=== PATIENT | female | born 1995 | race American Indian/Alaskan Native ===

== ENCOUNTER 2020-02-28 20:11 | Emergency (ER) | payer OTHER ==
[2020-02-28 20:20] VITALS: BP 119/71
[2020-02-28] MEDS ORDERED: diphenhydrAMINE 50 MG/ML VIAL IM ONE (20:41)
--- NOTE | 2020-02-28 20:41 | Emergency Department Report ---
HPI - General Chief Complaint: Weakness Time Seen by Provider: 02/28/20 20:35 - HPI HPI: This is a 24-year-old female here reports that 10 minutes prior to coming to the emergency room she had episode of weakness and it started 30 minutes ago. Denies any fever chills. Denies any cough, runny nose or nasal congestion. Denies any chest pain or shortness of breath. Denies any exposure to coronavirus. Denies being around anyone that has been sick. Denies any abdominal or back pain. Denies any nausea vomiting or diarrhea. She is not concerned about because she said she is ferreira. Denies any fever chills and pain is 0 out of 10. She says she just feels nervous and shaky. Denies any drug use. She said she drinks alcohol socially and daily smoker. She has a history of mood disorder. ED Past Medical Hx - Past Medical History Previous Medical History?: Yes Hx Psychiatric Treatment: Yes (Mood disorder) - Surgical History Past Surgical History?: No - Family History Family history: no significant - Social History Smoking Status: Current Every Day Smoker Substance Use Type: Alcohol - Medications Home Medications: Home Medications Medication Instructions Recorded Confirmed Last Taken Type hydrOXYzine HCL [Atarax] 25 mg PO Q8H PRN #12 tablet 02/28/20 Unknown Rx ED Review of Systems ROS: Stated complaint: BODY SHAKING QUINCY Other details as noted in HPI Constitutional: weakness. denies: chills, fever Eyes: denies: eye pain, eye discharge ENT: denies: ear pain, throat pain, dental pain, congestion Respiratory: denies: cough, shortness of breath, SOB with exertion, SOB at rest, wheezing Cardiovascular: denies: chest pain, palpitations, dyspnea on exertion, edema, syncope Gastrointestinal: denies: abdominal pain, nausea, vomiting, diarrhea, const ipation, hematemesis, hematochezia Genitourinary: denies: urgency, hematuria, dyspareunia Musculoskeletal: denies: back pain, joint swelling, arthralgia, myalgia Skin: denies: rash Neurological: denies: headache, paresthesias, abnormal gait, vertigo Physical Exam - Physical Exam Vital Signs: Vital Signs 02/28/20 20:18 Temperature 97.5 F L Pulse Rate 79 Respiratory 18 Rate Blood Pressure 119/71 O2 Sat by Pulse 100 Oximetry General: This is a 24-year-old female well-nourished well-developed in no acute distress. She is nontoxic in appearance Physical Exam: Head: Normocephalic atraumatic. Mouth: Oral mucosa moist, tongue is normal, uvula is midline, no SHEET METAL SMITH or drooling, oral airways patent and uvula is Lungs: Clear to auscultated bilaterally, no rhonchi wheezes or rales. No use of accessory muscles. Nose: Normal examination Ears: Normal examination Neck: Supple, no tracheal deviation. No C-spine tenderness and full range of motion. Negative stridor and negative crepitus CV: S1, S2. Regular rate Abdomen: Nontender to palpate in all quadrants, normal bowel sounds in all quadrants. No distention. Eyes: Bilateral pupils equal and reactive to light, conjunctival injection or icterus. Bilateral EOM intact and normal accommodation. Lids are normal. No swelling noted. Face: Exam except for rash. No bony abnormality noted Skin: Clean dry and intact. No rash no lesions Extremity: No cce. + 2 pulses in all extremities, no neurovascular compromise. Mood: Mild anxiety without any obvious distress Neurological: No focal neurological deficit. She is able to ambulate without any difficulties. Normal gait, speech is clear fluid, she is alert and oriented 3, no motor or sensory deficits. Normal strength all extremities and normal reflexes. Negative Romberg and negative pronator drift Back: Nontender to palpate to vertebral spine from C-spine to L-spine including sacral area. No paraspinal tenderness and no CVA tenderness. No rash noted. ED Course Vital Signs 02/28/20 20:18 Temperature 97.5 F L Pulse Rate 79 Respiratory 18 Rate Blood Pressure 119/71 O2 Sat by Pulse 100 Oximetry - Reevaluation(s) Reevaluation #1: 02/28/20 21:11 Patient given Benadryl 50 mg IM in emergency room for nervousness. She is st able and in no acute distress and feels better ED Medical Decision Making - Medical Decision Making This is a 24-year-old female treated for mild anxiety in emergency room. Physical exam is normal vital signs stable and no concern for coronavirus. Patient discharged home in stable condition with prescription for Atarax and to follow-up with primary care physician in 1 to 2 days or return to the emergency room if her symptoms worsens Critical care attestation.: If time is entered above; I have spent that time in minutes in the direct care of this critically ill patient, excluding procedure time. ED Disposition Clinical Impression: Mild anxiety Disposition: DC-01 TO HOME OR SELFCARE Is pt being admited?: No Does the pt Need Aspirin: No Condition: Stable Instructions: Anxiety (ED) Additional Instructions: Please follow-up with primary care physician in 1 to 2 days Take Atarax for anxiety feeling but please do not drive or operate heavy machinery while taking this medication as it can cause sleepiness If your condition worsens, return to the emergency room Referrals: Follow-up, [facility] primary care [Other] - 02/29/20 Forms: Work/School Release Form(ED)
== END 2020-02-28 21:40 | disposition home or self-care (01) ==
LOC: ED 20:11
DX: F41.9 Anxiety disorder, unspecified (principal); F17.200 Nicotine dependence, unspecified, uncomplicated; F39 Unspecified mood [affective] disorder
CPT/HCPCS: 96372; 99281; J1200

== ENCOUNTER 2021-04-04 20:58 | Emergency (ER) | payer OTHER ==
[2021-04-04] MEDS ORDERED: SODIUM CHLORIDE 0.9% 1000 ML 1,000 ML IV ONE (21:07)
[2021-04-04 21:16] LABS: Basophils % (Auto) 0.4 % (0.0-1.8); Eosinophils % (Auto) 0.7 % (0.0-4.3); Hematocrit 37.2 % (30.3-42.9); Hemoglobin 12.9 gm/dl (10.1-14.3); Lymphocytes % (Auto) 31.3 % (13.4-35.0); Mean Corpuscular HGB Conc 35 % (30-34); Mean Corpuscular Volume 92 fl (79-97); Monocytes # (Auto) 0.3 K/mm3 (0.0-0.8); Monocytes % (Auto) 5.2 % (0.0-7.3); Platelet Count 270 K/mm3 (140-440); Red Blood Count 4.07 M/mm3 (3.65-5.03); Red Cell Distribution Width 13.1 % (13.2-15.2)
--- NOTE | 2021-04-04 21:28 | Emergency Department Report ---
History of Present Illness - General Chief Complaint: Overdose Stated Complaint: POSSIBLE O/D Time Seen by Provider: 04/04/21 21:07 Source: patient Mode of arrival: Wheelchair Limitations: No Limitations - History of Present Illness Initial Comments: CC: overdose HPI: THis is a 25 yo female with hx of bipolar disorder and previous suicide attempt who presents after intentionally overdosing on escitalopram. Mother noticed that patient was "lethargic". When questioned, patient admitted that she took pills. Mother realized that her bottle of Escitalopram was empty. Escitalopram 5 mg tablets quantity 30 was filled on March 09. Unknown ingested a mount. Patient is currently drowsy. She will open eyes to voice. Mother states that she has been upset over the last several days. She is currently unemployed. The job search has been quite stressful for the patient. Patient has a new psychiatrist. [facility] [phone] I obtained history from mother Mehnaz Lu at the bedside. Her phone number is [phone] Patient has required inpatient psychiatric admission. Mother stated that she was admitted to [facility] mental health unit after intentional overdose. Patient became lethargic 1-2 hours prior to arrival. Complaint: intentional overdose -: Sudden, This evening - Related Data Previous Rx's Medication Instructions Recorded Last Taken Type hydrOXYzine HCL [Atarax] 25 mg PO Q8H PRN #12 tablet 02/28/20 Unknown Rx Allergies Allergy/AdvReac Type Severity Reaction Status Date / Time No Known Allergies Allergy Unverified 02/28/20 20:21 ED Review of Systems ROS: Stated complaint: POSSIBLE O/D Other details as noted in HPI Comment: Unobtainable due to pts medical conditions (Altered mental status, decreased level of consciousness) ED Past Medical Hx - Past Medical History Previous Medical History?: Yes Hx Psychiatric Treatment: Yes (Bipolar disorder) - Surgical History Past Surgical History?: Yes Additional Surgical History: Hemorrhoidectomy - Social History Smoking Status: Current Every Day Smoker Substance Use Type: Alcohol, Marijuana - Medications Home Medications: Home Medications Medication Instructions Recorded Confirmed Last Taken Type hydrOXYzine HCL [Atarax] 25 mg PO Q8H PRN #12 tablet 02/28/20 Unknown Rx ED Physical Exam - General Limitations: No Limitations General appearance: lethargic, other (Will open eyes to voice) - Head Head exam: Present: atraumatic, normocephalic - Eye Eye exam: Present: normal appearance, PERRL. Absent: scleral icterus, conjunctival injection - ENT ENT exam: Present: mucous membranes moist - Neck Neck exam: Present: normal inspection, full ROM - Respiratory Respiratory exam: Present: normal lung sounds bilaterally. Absent: respiratory distress, wheezes, rales, rhonchi - Cardiovascular Cardiovascular Exam: Present: regular rate, normal rhythm, normal heart sounds. Absent: systolic murmur, diastolic murmur, rubs, gallop - GI/Abdominal GI/Abdominal exam: Present: soft, normal bowel sounds. Absent: distended, tenderness, guarding, rebound - Extremities Exam Extremities exam: Present: normal inspection - Back Exam Back exam: Present: normal inspection - Neurological Exam Neurological exam: Present: altered - Skin Skin exam: Present: warm, dry, intact, normal color. Absent: rash ED Course Vital Signs 04/04/21 04/04/21 04/04/21 20:58 21:00 21:10 Temperature 97.6 F Pulse Rate 71 68 70 Respiratory 12 11 L 12 Rate Blood Pressure 127/73 127/72 O2 Sat by Pulse 88 89 96 Oximetry 04/04/21 04/04/21 04/04/21 21:16 21:30 21:46 Temperature Pulse Rate 65 62 66 Respiratory 10 L 12 13 Rate Blood Pressure 127/72 127/72 127/72 O2 Sat by Pulse 97 93 90 Oximetry 04/04/21 04/04/21 04/04/21 22:00 22:38 23:00 Temperature Pulse Rate 75 63 Respiratory 14 16 14 Rate Blood Pressure 121/64 122/74 O2 Sat by Pulse 92 96 98 Oximetry 04/04/21 04/04/21 04/04/21 23:16 23:30 23:46 Temperature Pulse Rate 62 57 L 62 Respiratory 11 L 13 15 Rate Blood Pressure 122/74 122/74 122/74 O2 Sat by Pulse 97 95 92 Oximetry 04/05/21 04/05/21 04/05/21 00:00 00:16 00:30 Temperature Pulse Rate 72 70 60 Respiratory 12 12 15 Rate Blood Pressure 115/61 115/61 115/61 O2 Sat by Pulse 95 91 92 Oximetry - Reevaluation(s) Reevaluation #1: 04/04/21 21:26 Stable vital signs on monitor. Oxygen saturation 98% on room air. Protecting airway. Normal EKG Reevaluation #2: 04/04/21 22:37 I reassessed patient. She is arousable. She is able to answer questions. Normal vital signs. Normal oxygen saturation on room air. Reevaluation #3: 04/05/21 00:48 Patient protecting airway. Stable vital signs. ED Medical Decision Making - Lab Data Result diagrams: 04/04/21 21:00 04/05/21 Unknown Laboratory Results - last 24 hr 04/04/21 04/04/21 04/04/21 21:00 21:00 21:00 WBC 6.4 RBC 4.07 Hgb 12.9 Hct 37.2 MCV 92 MCH 32 MCHC 35 H RDW 13.1 L Plt Count 270 Lymph % (Auto) 31.3 [place] % (Auto) 5.2 Eos % (Auto) 0.7 Baso % (Auto) 0.4 Lymph # (Auto) 2.0 [place] # (Auto) 0.3 Eos # (Auto) 0.0 Baso # (Auto) 0.0 Seg Neutrophils % 62.4 Seg Neutrophils # 4.0 Sodium 137 Potassium 3.8 Chloride 100.3 Carbon Dioxide 25 Anion Gap 16 BUN 10 Creatinine 0.8 Estimated GFR > 60 BUN/Creatinine Ratio 13 Glucose 105 H Calcium 9.6 Total Bilirubin 0.20 AST 17 ALT 10 Alkaline Phosphatase 86 Total Protein 7.5 Albumin 4.7 Albumin/Globulin Ratio 1.7 HCG, Qual Salicylates < 0.3 L Acetaminophen Plasma/Serum Alcohol 04/04/21 04/04/21 04/04/21 21:00 21:00 21:00 WBC RBC Hgb Hct MCV MCH MCHC RDW Plt Count Lymph % (Auto) [place] % (Auto) Eos % (Auto) Baso % (Auto) Lymph # (Auto) [place] # (Auto) Eos # (Auto) Baso # (Auto) Seg Neutrophils % Seg Neutrophils # Sodium Potassium Chloride Carbon Dioxide Anion Gap BUN Creatinine Estimated GFR BUN/Creatinine Ratio Glucose Calcium Total Bilirubin AST ALT Alkaline Phosphatase Total Protein Albumin Albumin/Globulin Ratio HCG, Qual Negative Salicylates Acetaminophen 5.0 L Plasma/Serum Alcohol < 0.01 04/05/21 04/05/21 01:12 Unknown WBC RBC Hgb Hct MCV MCH MCHC RDW Plt Count Lymph % (Auto) [place] % (Auto) Eos % (Auto) Baso % (Auto) Lymph # (Auto) [place] # (Auto) Eos # (Auto) Baso # (Auto) Seg Neutrophils % Seg Neutrophils # Sodium 135 L Potassium 5.0 D Chloride 102.4 Carbon Dioxide 24 Anion Gap 14 BUN 10 Creatinine 0.7 Estimated GFR > 60 BUN/Creatinine Ratio 14 Glucose 101 H Calcium 8.8 Total Bilirubin 0.20 AST 14 ALT 9 Alkaline Phosphatase 81 Total Protein 6.4 Albumin 4.3 Albumin/Globulin Ratio 2.0 HCG, Qual Salicylates Acetaminophen 15.5 Plasma/Serum Alcohol - EKG Data -: EKG Interpreted by Sc EKG shows normal: sinus rhythm, axis, intervals, QRS complexes, ST-T waves Rate: normal - EKG Data Interpretation: normal EKG EKG obtained 2116 EKG interpreted by nc Normal sinus rhythm normal rate normal axis normal intervals no ST elevation no ST-T signs of ischemia normal EKG 04/05/21 00:36 Second EKG obtained 002 EKG interpreted by nc Normal sinus rhythm normal rate normal axis normal intervals no ST elevation no ST-T signs of ischemia normal EKG 04/05/21 03:38 Third EKG obtained 332 Normal sinus rhythm rate 60 bpm normal axis normal intervals no ST-T signs of ischemia - Medical Decision Making Intentional overdose of escitalopram: Upon arrival patient was drowsy but protecting airway. Normal vital signs. I spoke with toxicology expert [place] [facility] control who recommended repeat CMP and Tylenol levels at 4 hours. Toxicology expert explains that patient likely took a small number of pills considering the absence of serotonergic symptoms such as tachycardia. Will repeat EKGs in order to rule out conduction abnormality. Patient on monitor. ED hold order in place. 1013 form completed. Third EKG EKG obtained 033 Rate 60 bpm normal axis normal intervals no ST-T sign ischemia Repeat Tylenol below toxic level. CMP within normal limits. No evidence of hepatotoxicity. Second AST ALT levels decreased compared to initial labs. I do not suspect significant ingestion of acetaminophen. Patient is medically clear for psychiatric care. She is awake. She is answering questions appropriately. She denies Tylenol ingestion of any sort. Toxicology aviation consultant recommended observation 6 to 8 hours. After 7 hours no arrhythmia or respiratory depression. Patient is medically clear for ps ychiatric care. She is awake conversant. Critical Care Time: Yes Critical care time in (mins) excluding proc time.: 40 Critical care attestation.: If time is entered above; I have spent that time in minutes in the direct care of this critically ill patient, excluding procedure time. 40 minutes of critical care time excluding procedures were used in the care of the patient. I came immediately to the bedside upon patient's arrival. I discussed treatment plan with the nursing team members. I reviewed electronic record. I spoke extensively with mother at the bedside. I consulted toxicology except through hotline. Patient required multiple interventions and reassessments. ED Disposition Clinical Impression: Intentional overdose of drug in tablet form, Suicide attempt, Bipolar disorder Disposition: DC/TX-65 PSY HOSP/PSY UNIT Is pt being admited?: No Does the pt Need Aspirin: No Condition: Stable
[2021-04-04 21:33] LABS: Alanine Aminotransferase 10 units/L (7-56); Albumin 4.7 g/dL (3.9-5); BUN/Creatinine Ratio 13; Blood Urea Nitrogen 10 mg/dL (7-17); Calcium 9.6 mg/dL (8.4-10.2); Hemolysis Index 0
[2021-04-05 02:47] LABS: Alanine Aminotransferase 9 units/L (7-56); Albumin 4.3 g/dL (3.9-5); Blood Urea Nitrogen 10 mg/dL (7-17); Calcium 8.8 mg/dL (8.4-10.2); Hemolysis Index 7
[2021-04-05 02:52] LABS: BUN/Creatinine Ratio 14
[2021-04-05 06:48] LABS: Bilirubin,Urine NEG (Negative); Blood,Urine NEG (Negative); Color,Urine Yellow (Yellow); Mucus,Urine 1+ /HPF; Protein,Urine <15 mg/dL mg/dL (Negative); Urobilinogen,Urine < 2.0 mg/dL (<2.0)
[2021-04-05 06:55] LABS: Amphetamine Screen,Urine Negative; Benzodiazepines Screen,Urine Negative; Cannabinoid Screen,Urine Negative; Cocaine Screen,Urine Negative; Methadone Screen,Urine Negative; Opiate Screen,Urine Negative
--- NOTE | 2021-04-05 08:48 | Consultation ---
History of Present Illness - Reason for Consult Consult date: 04/05/21 Reason for consult: MHE Requesting physician: ARTURO WATT - History of Present Psychiatric Illness Per ED Provider: THis is a 25 yo female with hx of bipolar disorder and previous suicide attempt who presents after intentionally overdosing on escitalopram. Mother noticed that patient was "lethargic". When questioned, patient admitted that she took pills. Mother realized that her bottle of Escitalopram was empty. Escitalopram 5 mg tablets quantity 30 was filled on March 09. Unknown ingested amount. Patient is currently drowsy. She will open eyes to voice. Mother states that she has been upset over the last several days. She is cur rently unemployed. The job search has been quite stressful for the patient. Patient has a new psychiatrist. [facility] [phone] I obtained history from mother Mehnaz Lu at the bedside. Her phone number is [phone] Patient has required inpatient psychiatric admission. Mother stated that she was admitted to [facility] mental health unit after intentional overdose. PSYCH HPI Patient is a 25-year-old single unemployed -[place] female with past psychiatric history of bipolar disorder unspecified, and no significant past medical history who presented to the ED accompanied with mother with complaints of intentional overdose. Patient states she is not really hopeless or helpless, she has just been having financial related issues that just got her stressed out yesterday so she took some percoet left over pills that she had from prior surgical procedure last year. She denies abuse of any sort, reports mom has been supportive and currently pay the bills. I spoke with patients mom, she states she does not disagree with patient statement and patient actually just got a job and yet to start, mother also notes she is able to get her to see psychiatrist once discharged from hospital and observe and ensure she is care compliant. PAST PSYCHIATRIC HISTORY Diagnoses: mood disorder unspecified Suicide attempts or Self-harm behavior: none reported Prior psychiatric hospitalizations: none reported Substance Abuse history: none reported Previous psychiatric medications tried: none reported Outpatient treatment: none reported PAST MEDICAL HISTORY: none reported Family Psychiatric History: None reported or documented SOCIAL HISTORY Marital Status: single Living Arrangements: with mother Employment Status: employed Access to guns/weapons: Education: Technical Degree History of Abuse: no Legal History: yes REVIEW OF SYSTEMS Constitutional: Negative for weight loss ENT: Negative for stridor Respiratory: Negative for cough or hemoptysis All other systems reviewed and are negative MENTAL STATUS EXAMINATION General Appearance and Behavior: Age appropriate, good hygiene, wearing appropriate clothes, good eye contact, cooperative polite with questioning. Cooperation: Participating/engaged Psychomotor Behavior: unremarkable and within normal limits Mood: Good Affect and affective range: congruent with mood Thought Process: Fluent/Logical, Thought Content: Within reality, Speech: Normal volume, Regular rate and rhythm, Intellectual Functioning: Average Suicidal Ideation: Denies SI Homicidal Ideation: Denies HI Impulse Control: Unimpaired Insight and Judgment: Normal insight and judgment, Memory: Normal, Attention: Normal, Orientation: Alert, oriented, Diagnoses: Treatment Plan Spoke with mom, agrees to outpt psych follow up, mom already making appointment and will pick patient up in ED MEDICATIONS: Risks, benefits and alternatives of medications discussed with the patient, questions answered and consent obtained from patient. PSYCHOTHERAPY: Supportive psychotherapy provided MEDICAL: Per primary team DELIRIUM PRECAUTIONS: Please re-orient patient frequently, keep lights on during the day, and minimize benzodiazepines and opiates as these medications could worsen patient's confusion. RECORDIST CHIEF: DISPOSITION: Do Not Recommend acute inpatient psychiatric hospitalization at this time. Case discussed with Dr. Harper who agrees with current disposition LEGAL STATUS: 1013 rescinded FOLLOW-UP: Will sign off Thank you for the consult. Please contact with any questions and/or concerns. Medications and Allergies Allergies Allergy/AdvReac Type Severity Reaction Status Date / Time No Known Allergies Allergy Unverified 02/28/20 20:21 Home Medications Medication Instructions Recorded Confirmed Last Taken Type hydrOXYzine HCL [Atarax] 25 mg PO Q8H PRN #12 tablet 02/28/20 Unknown Rx Mental Status Exam - Vital signs Last Vital Signs Temp 97.6 F 04/04/21 21:10 Pulse 63 04/05/21 04:00 Resp 13 04/05/21 04:00 BP 112/64 04/05/21 04:00 Pulse Ox 98 04/05/21 04:00 Results Result Diagrams: 04/04/21 21:00 04/05/21 Unknown Abnormal lab results 04/04/21 04/04/21 04/04/21 Range/Units 21:00 21:00 21:00 MCHC 35 H (30-34) % RDW 13.1 L (13.2-15.2) % Sodium (137-145) mmol/L Glucose 105 H (65-100) mg/dL Salicylates < 0.3 L (2.8-20.0) mg/dL Acetaminophen (10.0-30.0) ug/mL 04/04/21 04/05/21 Range/Units 21:00 Unknown MCHC (30-34) % RDW (13.2-15.2) % Sodium 135 L (137-145) mmol/L Glucose 101 H (65-100) mg/dL Salicylates (2.8-20.0) mg/dL Acetaminophen 5.0 L (10.0-30.0) ug/mL All other labs normal.
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
--- NOTE | 2021-04-05 12:51 | Event Note ---
Date: 04/05/21 S- patient states "I am fine. " Denies any SI. O- Vital signs stable. Patient resting comfortably. She is calm and cooperative. A- unspecified mood disorder [id number] has been rescinded and discharge has been ordered by psychiatry
[2021-04-05 12:56] VITALS: BP 133/68
--- NOTE | 2021-04-06 17:32 | Electrocardiograph Report ---
[facility] Test Date: 2021-04-04 Test Time: 21:17:02 Pat Name: KUMAR REBOLLAR Department: Room: Gender: F Gsa Coordinator: STEVE : 1995 Requested By: ARTURO WATT Order Number: [id number] Reading MD: Saulo Chavarria Measurements Intervals [place] Rate: 65 P: 31 [place]: 135 QRS: 63 QRSD: 80 T: 36 QT: 412 QTc: 430 Interpretive Statements Sinus rhythm No previous ECG available for comparison Electronically Signed On 04-06-2021 17:32:12 EDT by Saulo Chavarria
--- NOTE | 2021-04-06 17:34 | Electrocardiograph Report ---
[facility] Test Date: 2021-04-05 Test Time: 00:26:03 Pat Name: KUMAR REBOLLAR Department: Room: Gender: F Family Services Specialist: CLAYTON : 1995 Requested By: ARTURO WATT Order Number: [id number] Reading MD: Saulo Chavarria Measurements Intervals [place] Rate: 82 P: 66 [place]: 154 QRS: 69 QRSD: 80 T: 39 QT: 388 QTc: 453 Interpretive Statements Sinus rhythm No significant change from 04/04/2021. Electronically Signed On 04-06-2021 17:34:13 EDT by Saulo Chavarria
--- NOTE | 2021-04-06 17:38 | Electrocardiograph Report ---
[facility] Test Date: 2021-04-05 Test Time: 03:33:34 Pat Name: KUMAR REBOLLAR Department: Room: Gender: F Hydrotechnical Specialist: CLAYTON : 1995 Requested By: ARTURO WATT Order Number: [id number] Reading MD: Saulo Chavarria Measurements Intervals [place] Rate: 59 P: 45 [place]: 151 QRS: 66 QRSD: 79 T: 46 QT: 422 QTc: 417 Interpretive Statements Sinus bradycardia No significant change from earlier EKG done approximately 3 hours ago. Electronically Signed On 04-06-2021 17:37:33 EDT by Saulo Chavarria
== END 2021-04-05 13:36 | disposition home or self-care (01) ==
LOC: ED 20:58
DX: T43.222A Poisoning by selective serotonin reuptake inhibitors, intentional self-harm, initial encounter (principal); R53.83 Other fatigue; Z20.822 Contact with and (suspected) exposure to COVID-19; F31.9 Bipolar disorder, unspecified; F17.200 Nicotine dependence, unspecified, uncomplicated; F12.10 Cannabis abuse, uncomplicated; Z90.89 Acquired absence of other organs; Z79.899 Other long term (current) drug therapy; Y92.89 Other specified places as the place of occurrence of the external cause
CPT/HCPCS: 36415; 80053; 80307; 81001; 84703; 85025; 93005; 96360; 99285; J7030; U0003; 80320; G0480